=== PATIENT | female | born 1955 | race Caucasian/White ===

== ENCOUNTER 2016-09-20 08:58 | Day surgery (SDC) | payer OTHER ==
[~2016-09-20] VITALS: Ht 157.5 cm; Wt 101.0 kg
[~2016-09-20 08:58] MED LIST: ALBU8.5H2 INHALATION; AMOX-366 PO; AMOX500C2 PO; ASPI-973 PO; FERR159T2 PO; FLUT9.9S NS; FUR20 PO; FURO40TA4 PO; GABA600T2 PO; HYDR-4003 PO; LAMO200T PO; LAMO25TA PO; LANS30CA14 PO; Lactated Ringer's 1,000 ML IV ONE; MULT-1018 PO; POTA20TA16 PO; RANI300C PO; SPIR25TA3 PO
[2016-09-20] MEDS ORDERED: Propofol 10 mg/mL 20 mL Inj ONE (08:59)
[2016-09-20 09:26] VITALS: BP 151/69; PULSE 76; RESP 16; O2SAT 97
[2016-09-20] MEDS ORDERED: METF500T4 PO (09:26)
[2016-09-20 10:22] VITALS: BP 118/48; PULSE 74; RESP 16; O2SAT 98
--- NOTE | 2016-09-20 10:35 | ENDO ---
[address] [address] ENDOSCOPY PROCEDURE PATIENT: LAURA POE : 1955 MR#: [id number] ADMIT: 09/20/2016 JOB ID: [id number] DATE: 09/20/2016 PROCEDURE: Esophagogastroduodenoscopy. INDICATION: History of Rivas esophagus. The patient's ASA classification, Mallampati score, and medications as per anesthesia note. INSTRUMENT USED: GIF H 180 J. PROCEDURE DETAILS: After informed consent was obtained, the patient was brought into the GI suite, where she was placed on oxygen via nasal cannula and monitored with continuous pulse oximeter, telemetry, and blood pressure monitoring. A time-out was performed. Then, she was placed in the left lateral decubitus position and medications were administered for sedation. A bite block was placed. Standard EGD scope was inserted through the bite block and advanced under direct visualization to the second portion of the duodenum without difficulty. FINDINGS: 1. Normal appearing duodenal bulb, first and second portion. 2. Normal-appearing pylorus. In the antrum, there were multiple erosions noted. Multiple random biopsies were obtained. 3. Retroflexed views in the gastric body revealed a normal-appearing cardia and fundus. 4. The GE junction was at approximately 38 cm. Arising from the GE junction, there was a short tongue of salmon-colored mucosa arising to 36 cm. Multiple random biopsies were obtained in the distal esophagus. The remainder of the esophagus otherwise unremarkable. IMPRESSION: C0 M2 Rivas esophagus. RECOMMENDATIONS: 1. PPI 30 minutes to one hour before breakfast and dinner and H2 tobi at bedtime. 2. Followup in GI clinic in 2-4 weeks. COMPLICATIONS: None. ESTIMATED BLOOD LOSS: Less than 5 mL.
[2016-09-20 10:36] VITALS: BP 140/56; PULSE 75; RESP 16; O2SAT 99
--- NOTE | 2016-09-20 12:45 | PCM.HPANE ---
Patient Data Surgeon Admitting Provider: Attending Provider:Fritz Mathis MD Primary Care Physician:Cisco Tyler MD Other Provider:[facility] Reason for Visit History Barretts Esophagus Ht/WT & BMI Height (Feet): 5 Height (Inches): 2 Weight (Kilograms): 101 Body Mass Index 40.00 Allergies Coded Allergies: codeine (Verified Allergy, Severe, 09/20/16) MUSHROOM (Verified Allergy, Mild, 09/20/16) Past Anesthesia History Anesthesia History: Positive for:: Abnormal Airway (small), Denies:: Anesthesia Reactions, Difficult Intubation, Fam Anesthesia Reaction , Fam Malignant Hypertherm, Malignant Hyperthermia Diabetes History Hx Diabetes?: Yes MRSA MRSA: No Medications Reported Medications Metformin 500 Mg Gghyva297 Mg PO BID Ref 0 09/20/16 Multivitamin (Multi Vitamin Daily)1 Each Tablet1 Each PO DAILY 30 Days Ref 0 10/06/15 Gabapentin 600 Mg Efjjgp497 Mg PO TID Ref 0 10/06/15 Furosemide 40 Mg Wltezd77 Mg PO DAILY 10/06/15 Aspirin 81 Mg Nxpmht43 Mg PO DAILY Ref 0 10/06/15 Spironolactone 25 Mg Pirelp18 Mg PO BID #30 TABLET Ref 0 06/24/15 Potassium Chloride 20 Meq Tab.er.prt20 Meq PO BID 30 Days Ref 0 TAKE WITH FOOD 06/24/15 Hydrocodone-Acetaminophen 5-325 mg 1 Each Tablet1 Tablet PO Q6HRS PRN For Pain Ref 0 06/24/15 Albuterol HFA (Proair HFA)8.5 Gm Hfa.aer.ad2 Puffs INHALATION Q4H #1 INHALER 06/24/15 Ranitidine 300 Mg Hqotxiw623 Mg PO DAILY 30 Days Ref 0 04/06/[address] (Prevacid)30 Mg Capsule.dr30 Mg PO DAILY #30 CAPSULE Ref 0 04/06/14 Lamotrigine 25 Mg Bbggxs40 Mg PO DAILY #30 TABLET Ref 0 04/06/14 Ferrous Sulfate, Dried (Iron)159 Mg Tablet.erUnknown Dose PO DAILY 04/06/14 Lamotrigine (Lamictal)200 Mg Hobbdr104 Mg PO DAILY #30 TABLET Ref 0 04/06/14 Furosemide 20 Mg Tab20 Mg PO DAILY 30 Days Ref 0 04/06/14 Discontinued Reported Medications Fluticasone Propionate (Flonase Allergy Relief)50 Mcg/Actuation [place].susp9.9 Ml NS 10/06/15 Amoxicillin/Clav K 875-125 mg (Augmentin 875-125 mg)1 Each Tablet1 Tablet PO BID #20 TABLET Ref 0 10/06/15 Amoxicillin 500 Mg Sswtyox621 Mg PO TID Ref 0 10/06/15 History History of ENT Problems?: No HEENT History: Positive for:: Abnormal Airway (small) Denies:: Difficult Intubation Dysphagia Hearing Problem Denture Type: None Teeth Condition: Within Normal Limits Hx of Heart Problems?: No Cardiovascular History: Positive for:: Hypertension Denies:: AICD Atrial Fibrillation Chest Pain Congestive Heart Failure Pacemaker Valvular Heart Disease Hx of Respiratory Problem?: No Respiratory History: Denies:: Asthma COPD Cough Hemoptysis Pneumonia Tuberculosis Hx Neurologic Problems?: Yes Neurological History: Positive for:: Headaches Seizures Denies:: CVA Hx of GI Problems?: Yes Hx of Problems?: No Female Hx: Denies:: Currently Hx Musculoskeletal Problems?: No Musculoskeletal History: Denies:: Joint Replacement Hx of Psycho/Social Problems?: No Psycho Social History: Positive for:: Hx Depression Denies:: Anxiety Hx Surgeries?: Yes (appy) Hx Any Other Health Problems?: Yes Other History: Positive for:: Hospitalization (APPENDECTOMY A CHILD.) Denies:: Cancer Thyroid Disease History Blood Transfusions: Denies:: Blood Transfuse Reaction Blood Transfusions Hx Diabetes: Yes Hx Alcohol Use: NoHx Substance Use: No Smoking Status: Never Smoker Have You Smoked inLast 12 mo: No Stop/Bang Risk Assessment Category Category 1A: Patient has history of documented sleep apnea, and HAS NOT received any narcotic, sedative or anesthesia administration during this stay. Category 1B: Patient has history of documented sleep apnea, and HAS received any narcotic , sedative or anesthesia administration during this stay Category 2: Patient has SUSPECTED Obstructive Sleep Apnea, and HAS received any narcotic , sedative or anesthesia administration during this stay. Category 3: Patient has SUSPECTED Obstructive Sleep Apnea and HAS NOT received narcotic, sedative or anesthesia administration during this stay. Category 4: Outpatient in Procedural Areas with known sleep apnea or who screen positive for High Risk via the STOP/BANG questionnaire. Exam Exam General Appearance: Alert, Oriented X3, Cooperative, No Acute Distress HEENT/AIRWAY: MP 2 Lungs: Clear to Auscultation Heart: Exam Unremarkable Plan Impression Patient chart reviewed, patient interviewed and anesthestic plan with risks, benefits, and alternatives discussed, and informed consent obtained. ASA Physical Status: ASA2 Mod Systemic Disease Anesthetic Plan: MAC Bene/Risks/Altern/Consents: Yes HP Complete Prior to Induction: Yes Rashel Oscar MD Sep 20, 2016 09:29
--- NOTE | 2016-09-20 12:45 | PCM.ANEP1 ---
Post Anesthesia PACU Phase 1 Assessment Vital Signs Vital Signs Date Time Temp Pulse Resp B/P Pulse Ox O2 Delivery O2 Flow Rate FiO2 09/20/16 10:36 75 16 140/56 99 Room Air 09/20/16 10:22 74 16 118/48 98 Room Air 09/20/16 09:26 36.7 76 16 151/69 97 Room Air Anesthetic Administered: MAC Level of Alertness: Awake, talking CARLISLE's with Equal Strength: Yes Pain: No Nausea or Vomiting: No CV Function & Hydration Stable: Yes Airway Device: Oxygen Delivery: Room Air Lungs: Clear to Auscultation PACU Phase 2 Assessment Complications: No Patient Instructions Provided: N/A Rashel Oscar MD Sep 20, 2016 12:45
--- NOTE | 2016-09-21 13:03 | PATH ---
SURGICAL PATHOLOGY Attending Physician:Nadine Rivers CASE STATUS: Signed Out PATIENT NAME: LAURA POE PID: [id number] : 1955 DATE COLLECTED:09/20/2016 16:46 SPECIMEN: 1: Gastric, Biopsy 2: Esophagus, Biopsy CLINICAL HISTORY: 1. GASTRIC ANTRUM R/O H.PYLORI 2. DISTAL ESOPHAGUS FINAL DIAGNOSIS: 1.GASTRIC ANTRUM BIOPSY: MILD DIFFUSE CHRONIC GASTRITIS INVOLVING ANTRAL MUCOSA. Negative for evidence of Helicobacter on H&E stain. Negative for intestinal metaplasia. Negative for dysplasia and malignancy. 2.DISTAL ESOPHAGUS, BIOPSY: SQUAMOUS MUCOSA AND GASTRIC CARDIA-TYPE MUCOSA POSITIVE FOR SPECIALIZED METAPLASIA OF COVARRUBIAS' S-TYPE ESOPHAGUS. Negative for dysplasia and malignancy. Negative for squamous intraepithelial eosinophils. ICD10 K22.70 GROSS DESCRIPTION: Received are two formalin-filled containers, both labeled with the patient' s name: 1. Received in formalin, labeled with the patient' s name and "gastric antrum", is one fragment of rosen, soft tissue measuring 0.1 x 0.1 x 0.1 cm. The fragment is totally submitted in cassette 1A. 2. Received in formalin, labeled with the patient' s name and "distal esophagus", is one fragment of rosen, soft tissue measuring 0.2 x 0.2 x 0.1 cm. The fragment is totally submitted in cassette 2A. ([id number]) MICRO DESCRIPTION: See diagnosis. ICD-9 CODES: CPT CODES: 1: 59999 2: 37226 Electronically Signed Out Sanjeev Moya MD [facility] [address], [place] [address] Technical component performed at [facility], [address], [place], [address]
== END 2016-09-20 23:59 | disposition home or self-care (01) ==
LOC: END 08:58
PROVIDERS: ATTEND Internal Medicine Gastroenterology
DX: K22.70 Barrett's esophagus without dysplasia (principal); K29.50 Unspecified chronic gastritis without bleeding; I10 Essential (primary) hypertension; E11.21 Type 2 diabetes mellitus with diabetic nephropathy; E11.65 Type 2 diabetes mellitus with hyperglycemia; R56.9 Unspecified convulsions; K21.9 Gastro-esophageal reflux disease without esophagitis; D50.9 Iron deficiency anemia, unspecified; F32.9 Major depressive disorder, single episode, unspecified; M54.41 Lumbago with sciatica, right side; E66.01 Morbid (severe) obesity due to excess calories; Z79.82 Long term (current) use of aspirin; Z79.891 Long term (current) use of opiate analgesic; Z68.42 Body mass index [BMI] 45.0-49.9, adult; Z87.19 Personal history of other diseases of the digestive system
CPT/HCPCS: 43239; 88305; J7120